=== PATIENT | male | born 1940 | race African-American/Black ===

== ENCOUNTER 2023-08-14 10:20 | Inpatient (IN) | payer MEDICARE, MEDICAID ==
[~2023-08-14] VITALS: Ht 177.8 cm; Wt 83.9 kg
[~2023-08-14 10:20] MED LIST: AMLO10TA80 PO; ASPI-1497 PO; ATEN-42 PO; ATOR20TA PO; BENA40TA91 PO; FOLI-43 PO; GABA-532 PO; INDA2.5T5 PO; LOVA20TA2 PO
[2023-08-14] MEDS ORDERED: ELIQUIS (10:27)
[2023-08-14 11:09] LABS: HEMATOCRIT. 30.7 % (42.0-52.0); HEMOGLOBIN. 9.8 g/dL (14.0-18.0); MEAN CORPUSCULAR HEMOGLOBIN 24.1 pg (28.0-32.0); MEAN CORPUSCULAR HGB CONC 31.8 g/dL (31.0-37.0); MEAN CORPUSCULAR VOLUME 75.7 fL (80.0-94.0); MEAN PLATELET VOLUME 8.3 fl (7.4-10.4); PLATELET 252 x1000/uL (130-400); RED BLOOD CELL COUNT 4.05 mill/uL (4.7-6.1); RED CELL DISTRIBUTION WIDTH 19.8 % (11.6-14.6)
[2023-08-14 11:10] LABS: DIFFERENTIAL COMMENT 1
[2023-08-14 11:29] LABS: ALANINE AMINOTRANSFERASE < 7 IU/L (10-49); ALBUMIN 3.7 g/dL (3.2-4.8); ASPARTATE AMINOTRANSFERASE 14 IU/L (<34); BILIRUBIN TOTAL 0.4 mg/dL (0.1-1.0); CALCIUM 8.6 mg/dL (8.7-10.4); CARBON DIOXIDE 31 mEq/L (21-32); CHLORIDE 104 mEq/L (98-107); CREATININE 1.7 mg/dL (0.6-1.3); GLUCOSE 124 mg/dL (70-105); POTASSIUM 4.4 mEq/L (3.5-5.1); PROTEIN TOTAL 7.7 g/dL (6.0-8.3); SODIUM 141 mEq/L (136-145); TROPONIN I HIGH SENSITIVITY 31 ng/L (3.0-53); UREA NITROGEN BLOOD 28 mg/dL (9-23)
[2023-08-14 12:17] LABS: ANISOCYTOSIS 2+; NUCLEATED RED BLOOD CELLS 1 /100 WBC; PLATELET ESTIMATE NORMAL
[2023-08-14 12:35] LABS: BG BASE EXCESS 0.5 mmol/L (-2.0-2.0); BG CARBOXYHEMOGLOBIN 0.3 % (0.5-1.5); BG DEOXYHEMOGLOBIN 4.7 % (0.0-5.0); BG FRACTION INSPIRED OXYGEN 21; BG HCO3 ACT 24.4 mmol/L (22.0-26.0); BG METHEMOGLOBIN 0.2 % (0.0-1.5); BG OXYGEN SATURATION 95.3 % (92.0-98.5); BG OXYHEMOGLOBIN 94.8 % (94.0-97.0); BG PCO2 36.6 mmHg (35.0-45.0); BG PH 7.442 (7.350-7.450); BG PO2 77.8 mmHg (75.0-100.0); BG SAMPLE SITE RIGHT RADIAL; BG TOTAL HEMOGLOBIN 10.3 g/dL (12.0-18.0); BG VENT MODE ROOM AIR
[2023-08-14] MEDS ORDERED: CEFTRIAXONE 1GM PREMIX 50 ML IV ONE (12:45)
[2023-08-14] MEDS ORDERED: AZITHROMYCIN 500MG/250ML 250 ML IV ONE (12:45)
[2023-08-14] MEDS ORDERED: CLONIDINE 0.1MG TABLET PO PRN (13:00)
[2023-08-14] MEDS ORDERED: ONDANSETRON HCL 4MG/2ML INJ IV PRN (13:00)
[2023-08-14] MEDS ORDERED: ACETAMINOPHEN 325MG TABLET PO PRN (13:00)
[2023-08-14] MEDS ORDERED: METHYLPREDNISOLONE SOD SUCC 125MG/2ML (ACT-O-VIAL) IV SCH (13:30)
[2023-08-14] MEDS: ENOXAPARIN 30MG/0.3ML SYR SUBCUT SCH (13:52)
[2023-08-14] MEDS ORDERED: CEFTRIAXONE 1GM PREMIX 50 ML IV SCH (14:00)
[2023-08-14] MEDS: GABAPENTIN 300MG CAPSULE PO SCH ×2 (14:12→18:15)
[2023-08-14 18:07] VITALS: BP 125/75; PULSE 92; RESP 18; TEMP 98.8
[2023-08-14] MEDS: FUROSEMIDE 40MG/4ML VIAL IVP SCH (18:14)
[2023-08-14] MEDS: PREDNISONE 20MG TABLET PO SCH (18:15)
[2023-08-14] MEDS: AMLODIPINE 5MG TABLET PO SCH (18:15)
[2023-08-14] MEDS ORDERED: APIX5TAB MT (18:24)
[2023-08-14] MEDS ORDERED: MONT-46 PO (18:24)
[2023-08-14 19:50] VITALS: BP 115/51; PULSE 87; RESP 18; TEMP 98.7
[2023-08-14 22:08] LABS: TROPONIN I HIGH SENSITIVITY 39 ng/L (3.0-53)
[2023-08-14] MEDS: ATORVASTATIN CALCIUM 10MG TABLET PO SCH (22:54)
[2023-08-15] VITALS: BP 114/60; PULSE 75; RESP 20; TEMP 97.2
[2023-08-15] MEDS ORDERED: DEXTROSE 50% WATER 50ML SYRINGE IV PRN (03:30)
[2023-08-15 04:00] VITALS: BP 102/48; PULSE 109; RESP 19; TEMP 97.3
[2023-08-15] MEDS: BLOOD SUGAR DIAGNOSTIC STRIP TEST SCH ×4 (05:47→21:02)
[2023-08-15] MEDS: INSULIN LISPRO 100 UNITS/ML SUBCUT SCH ×4 (05:50→21:00)
[2023-08-15 06:24] LABS: HEMATOCRIT. 25.3 % (42.0-52.0); HEMOGLOBIN. 7.9 g/dL (14.0-18.0); MEAN CORPUSCULAR HGB CONC 31.3 g/dL (31.0-37.0); MEAN CORPUSCULAR VOLUME 76.7 fL (80.0-94.0); MEAN PLATELET VOLUME 8.4 fl (7.4-10.4); PLATELET 212 x1000/uL (130-400); RED CELL DISTRIBUTION WIDTH 19.6 % (11.6-14.6); WHITE BLOOD COUNT 4.6 x1000/uL (4.5-11.0)
[2023-08-15 06:31] LABS: DIFFERENTIAL COMMENT 1
[2023-08-15 06:50] LABS: ALANINE AMINOTRANSFERASE < 7 IU/L (10-49); ALBUMIN 2.9 g/dL (3.2-4.8); ASPARTATE AMINOTRANSFERASE 10 IU/L (<34); BILIRUBIN TOTAL 0.3 mg/dL (0.1-1.0); CALCIUM 8.1 mg/dL (8.7-10.4); CARBON DIOXIDE 30 mEq/L (21-32); CHLORIDE 104 mEq/L (98-107); CREATININE 1.7 mg/dL (0.6-1.3); GLUCOSE 163 mg/dL (70-105); POTASSIUM 4.1 mEq/L (3.5-5.1); SODIUM 142 mEq/L (136-145); TROPONIN I HIGH SENSITIVITY 44 ng/L (3.0-53); UREA NITROGEN BLOOD 26 mg/dL (9-23)
[2023-08-15 06:58] LABS: PROTEIN TOTAL 5.7 g/dL (6.0-8.3)
[2023-08-15 07:30] LABS: CLARITY URINE CLEAR (CLEAR); COLOR URINE YELLOW (YELLOW); GLUCOSE URINE NEGATIVE (NEGATIVE); KETONES URINE NEGATIVE (NEGATIVE); LEUKOCYTE ESTERASE URINE TRACE (NEGATIVE); NITRITE URINE NEGATIVE (NEGATIVE); OCCULT BLOOD URINE NEGATIVE (NEGATIVE); PROTEIN URINE NEGATIVE (NEGATIVE); SPECIFIC GRAVITY URINE 1.009 (1.005-1.030); UROBILINOGEN URINE 0.2 E.U./dL (0.2-1.0)
[2023-08-15 07:38] VITALS: BP 105/61; PULSE 74; RESP 16; TEMP 98
[2023-08-15 08:04] LABS: BACTERIA URINE RARE; RBC URINE NONE SEEN /hpf (0-2); SQUAMOUS EPITHELIAL CELL URINE NONE SEEN /lpf (RARE/1+); YEAST URINE NONE SEEN
[2023-08-15] MEDS: POTASSIUM CHLORIDE 20MEQ TABLET SR PO SCH (08:21)
[2023-08-15] MEDS: PREDNISONE 20MG TABLET PO SCH ×3 (08:21→16:20)
[2023-08-15] MEDS: ENOXAPARIN 30MG/0.3ML SYR SUBCUT SCH (08:21)
[2023-08-15] MEDS: AMLODIPINE 5MG TABLET PO SCH ×2 (08:21→16:11)
[2023-08-15] MEDS: ATENOLOL 25MG TABLET PO SCH (08:22)
[2023-08-15] MEDS: FOLIC ACID 1MG TABLET PO SCH (08:22)
[2023-08-15] MEDS: GABAPENTIN 300MG CAPSULE PO SCH ×3 (08:22→16:11)
[2023-08-15] MEDS: FUROSEMIDE 40MG/4ML VIAL IVP SCH ×2 (08:22→16:11)
[2023-08-15] MEDS ORDERED: ASPIRIN 81MG EC TABLET PO SCH (09:00)
[2023-08-15] MEDS ORDERED: AMLODIPINE 10MG TABLET PO SCH (09:00)
[2023-08-15] MEDS ORDERED: PANTOPRAZOLE SODIUM 40 MG/VIAL IV NR (12:15)
[2023-08-15] MEDS: CEFTRIAXONE 1,000 MG in DEXTROSE 5% WATER 50 ML IV SCH (13:51)
[2023-08-15 16:10] VITALS: BP 119/62; PULSE 78; RESP 16; TEMP 98
[2023-08-15 16:20] LABS: ANISOCYTOSIS 2+; HYPOCHROMASIA 1+; MICROCYTOSIS 1+; PLATELET ESTIMATE NORMAL
[2023-08-15 20:00] VITALS: BP 104/60; PULSE 100; RESP 16; TEMP 97.9
[2023-08-15] MEDS: ATORVASTATIN CALCIUM 10MG TABLET PO SCH (20:56)
[2023-08-16] VITALS: BP 106/64; PULSE 74; RESP 18; TEMP 97.7
[2023-08-16 04:00] VITALS: BP 112/63; PULSE 72; RESP 18; TEMP 97.2
[2023-08-16] MEDS: INSULIN LISPRO 100 UNITS/ML SUBCUT SCH ×4 (06:17→20:45)
[2023-08-16] MEDS: BLOOD SUGAR DIAGNOSTIC STRIP TEST SCH ×4 (06:17→20:40)
[2023-08-16 06:34] LABS: CALCIUM 8.3 mg/dL (8.7-10.4); CARBON DIOXIDE 31 mEq/L (21-32); CHLORIDE 103 mEq/L (98-107); GLUCOSE 175 mg/dL (70-105); IRON 32 ug/dL (65-175); POTASSIUM 4.3 mEq/L (3.5-5.1); SODIUM 142 mEq/L (136-145); TOTAL IRON BINDING CAPACITY 191 ug/dl (250-425); UREA NITROGEN BLOOD 33 mg/dL (9-23)
[2023-08-16 07:11] LABS: HEMATOCRIT. 26.7 % (42.0-52.0); HEMOGLOBIN. 8.5 g/dL (14.0-18.0); MEAN CORPUSCULAR HEMOGLOBIN 24.1 pg (28.0-32.0); MEAN CORPUSCULAR HGB CONC 31.9 g/dL (31.0-37.0); MEAN CORPUSCULAR VOLUME 75.8 fL (80.0-94.0); MEAN PLATELET VOLUME 8.4 fl (7.4-10.4); PLATELET 243 x1000/uL (130-400); RED BLOOD CELL COUNT 3.52 mill/uL (4.7-6.1); RED CELL DISTRIBUTION WIDTH 19.6 % (11.6-14.6); WHITE BLOOD COUNT 5.4 x1000/uL (4.5-11.0)
[2023-08-16 07:58] LABS: DIFFERENTIAL COMMENT 1
[2023-08-16 08:00] VITALS: BP 163/86; PULSE 97; RESP 18; TEMP 97.4
[2023-08-16] MEDS ORDERED: PANTOPRAZOLE SODIUM 40 MG/VIAL IV SCH (09:00)
[2023-08-16] MEDS: GABAPENTIN 300MG CAPSULE PO SCH ×3 (09:29→17:56)
[2023-08-16] MEDS: ATENOLOL 25MG TABLET PO SCH (09:29)
[2023-08-16] MEDS: POTASSIUM CHLORIDE 20MEQ TABLET SR PO SCH (09:29)
[2023-08-16] MEDS: AMLODIPINE 5MG TABLET PO SCH ×2 (09:33→17:51)
[2023-08-16] MEDS: FUROSEMIDE 40MG/4ML VIAL IVP SCH ×2 (09:34→17:00)
[2023-08-16] MEDS: PREDNISONE 20MG TABLET PO SCH ×2 (09:34→17:50)
[2023-08-16] MEDS: FOLIC ACID 1MG TABLET PO SCH (09:34)
[2023-08-16] MEDS: CEFTRIAXONE 1,000 MG in DEXTROSE 5% WATER 50 ML IV SCH (12:00)
[2023-08-16 15:00] VITALS: BP 143/70; PULSE 74; TEMP 97.7; O2SAT 97
[2023-08-16 16:00] VITALS: BP 129/81; PULSE 76; RESP 22; TEMP 96.9
[2023-08-16] MEDS: FUROSEMIDE 40MG TABLET PO SCH (18:16)
[2023-08-16 20:00] VITALS: BP 97/50; PULSE 65; RESP 18; TEMP 97.9
[2023-08-16] MEDS: ATORVASTATIN CALCIUM 10MG TABLET PO SCH (20:44)
[2023-08-17] VITALS: BP 95/56; PULSE 59; RESP 18; TEMP 97.7
[2023-08-17 03:57] LABS: HYPOCHROMASIA 1+; MICROCYTOSIS 1+; PLATELET ESTIMATE NORMAL
[2023-08-17 04:00] VITALS: BP 100/61; PULSE 62; RESP 18; TEMP 97.7
[2023-08-17 08:00] VITALS: BP 109/64; PULSE 64; RESP 18; TEMP 97.8
[2023-08-17] MEDS: FOLIC ACID 1MG TABLET PO SCH (08:41)
[2023-08-17] MEDS: POTASSIUM CHLORIDE 20MEQ TABLET SR PO SCH (08:41)
[2023-08-17] MEDS: GABAPENTIN 300MG CAPSULE PO SCH (08:42)
[2023-08-17] MEDS: FUROSEMIDE 40MG TABLET PO SCH (08:42)
[2023-08-17 08:43] VITALS: PULSE 64
[2023-08-17] MEDS: ATENOLOL 25MG TABLET PO SCH (08:43)
[2023-08-17] MEDS: AMLODIPINE 5MG TABLET PO SCH (08:44)
[2023-08-17] MEDS ORDERED: PANTOPRAZOLE 40MG DR TABLET PO SCH (09:00)
[2023-08-17] MEDS: INSULIN LISPRO 100 UNITS/ML SUBCUT SCH (10:06)
== END 2023-08-17 11:25 | disposition home or self-care (01) | DRG 193 ==
LOC: ER 12:08 → 5WST 12:31 → EDBEDREQ 12:34 → EDBEDREQTM 12:34
PROVIDERS: ADMIT Internal Medicine Nephrology; ATTEND Internal Medicine Nephrology
DX: J18.9 Pneumonia, unspecified organism (principal); J96.01 Acute respiratory failure with hypoxia; L89.154 Pressure ulcer of sacral region, stage 4; I13.0 Hypertensive heart and chronic kidney disease with heart failure and stage 1 through stage 4 chronic kidney disease, or unspecified chronic kidney disease; G82.20 Paraplegia, unspecified; J91.8 Pleural effusion in other conditions classified elsewhere; E11.42 Type 2 diabetes mellitus with diabetic polyneuropathy; E11.51 Type 2 diabetes mellitus with diabetic peripheral angiopathy without gangrene; Z20.822 Contact with and (suspected) exposure to COVID-19; D50.9 Iron deficiency anemia, unspecified; I50.9 Heart failure, unspecified; N18.9 Chronic kidney disease, unspecified; D64.9 Anemia, unspecified; E11.22 Type 2 diabetes mellitus with diabetic chronic kidney disease; E78.00 Pure hypercholesterolemia, unspecified; I48.0 Paroxysmal atrial fibrillation; Z89.511 Acquired absence of right leg below knee; Z87.891 Personal history of nicotine dependence; Z79.84 Long term (current) use of oral hypoglycemic drugs; Z79.01 Long term (current) use of anticoagulants; Z74.01 Bed confinement status; Z79.82 Long term (current) use of aspirin; Z79.899 Other long term (current) drug therapy; Z88.1 Allergy status to other antibiotic agents; Z88.8 Allergy status to other drugs, medicaments and biological substances
CPT/HCPCS: 36415; 36600; 71045; 76604; 80048; 80053; 81003; 82270; 82375; 82805; 82962; 83036; 83540; 83550; 83735; 83880; 84484; 85025; 87426; 87804; 93005; 93306; 93970; 99285; C1893; C9113; C9803; J0456; J0696; J1650; J1815; J1940; J7060; J7512